=== PATIENT | female | born 1975 | race American Indian/Alaskan Native ===

== ENCOUNTER → 2017-12-26 09:52 | Outpatient (CLI) | payer MEDICAID, OTHER, SELFPAY ==
--- NOTE | 2017-12-26 | DI.MRI.S_ITS ---
PROCEDURE: MR BRAIN (IAC) WWO CON INDICATIONS: LEFT FACIAL NEURALGIA TECHNIQUE: Noncontrast sagittal T1 spin echo, axial FLAIR, axial gradient echo, axial diffusion and ADC through the brain. Axial thin-slice 3D CISS, coronal TruFISP, axial T1 spin echo with fat saturation through the internal auditory canals. After the administration of contrast, thin slice axial and coronal T1 spin echo with fat saturation through the internal auditory canals, and axial T1 spin echo with fat saturation through the brain. COMPARISON: [facility], CT, HEAD WITHOUT CONTRAST, 04/03/2013, 13:47. FINDINGS: Image quality: Excellent. Cerebellopontine angles: No cerebellopontine angle masses. Inner ear structures appear normally formed. No suspicious enhancement in the internal auditory canal or along the course of the 7th cranial nerve. CSF spaces: Ventricles are normal in size and shape. No extra-axial fluid collections. Basal cisterns are patent. Brain: No intracranial bleeds or mass effects. Douglas-white matter interface is intact. No abnormal intracranial enhancement. Diffusion weighted images demonstrate no acute ischemic insults. Brainstem appears normal. Normal intravascular flow voids are present. Skull and face: Calvarial marrow signal is normal. Orbits appear normal. Sinuses: Mild mucosal thickening noted in the left maxillary sinus, scattered throughout the ethmoid air cells bilaterally and in the frontal sinuses bilaterally. Scattered fluid signal noted in the dependent portions of the mastoid air cells bilaterally right greater than left. IMPRESSION: 1. No abnormal mass, abnormal signal or abnormal postcontrast enhancement identified along the course of the left seventh cranial nerve. 2. No intracranial disease process. 3. Small amount of fluid signal in the mastoid air cells bilaterally right greater than left. Recommend correlation with physical findings differentiate serous fluid from an inflammatory process. Dictated by: Brianne Neal MD, PhD on 12/26/2017 at 14:45 Approved by: Brianne Neal MD, PhD on 12/26/2017 at 14:51
== END ==
PROVIDERS: Family Provider Family Medicine; PCP Family Medicine; Visit Provider Otolaryngology
DX: G58.8 Other specified mononeuropathies (principal)
CPT/HCPCS: 70553; A9579